=== PATIENT | male | born 1970 | race African-American/Black ===

== ENCOUNTER 2017-01-20 11:10 | Day surgery (SDC) | payer OTHER ==
[2017-01-18 18:24] LABS: HEMATOCRIT 38.9 % (40.0-51.0); HEMOGLOBIN 12.6 g/dL (13.6-17.8)
--- NOTE | ~2017-01-20 | OP ---
Record Of Operation [facility] [address] [place]. [address] NAME: MICHELE NOVA : 72 STATUS : [facility]#: [id number] AGE: 46 ADM/REG DATE : 01/20/17 MR#: [id number] REPORT SERV DATE: 01/20/17 DICTATED BY: NIKHIL MATTA DATE: 01/20/17 REPORT STATUS : Draft TRANSCRIBED BY: MODL DATE: 01/20/17 DATE OF PROCEDURE: 01/20/2017 PREOPERATIVE DIAGNOSIS: Elevated PSA. POSTOPERATIVE DIAGNOSIS: Elevated PSA. PROCEDURE PERFORMED: Transrectal ultrasound with prostate needle biopsy. SURGEON: Nikhil Matta M.D. ANESTHESIA: General. COMPLICATION: Bleeding from the biopsy sites requiring digital pressure and Gel-Foam plug. SPECIMEN: Sextant prostate needle biopsies. BLOOD LOSS: 100 mL. INDICATION: Mr. Nova is a 46-year-old who had first ever PSA, this was elevated. He was seen, and digital rectal exam in the office showed firm ridging of the right lateral prostate. He is unable to tolerate biopsy in the office. He presents for transrectal ultrasound with prostate needle biopsies under brief anesthetic. TECHNIQUE: Ancef and gentamicin were given preop. He was brought to the operating room. Monitored anesthesia care was administered with propofol. He was positioned in the left lateral decubitus position with the knees flexed. Digital exam showed a 20 g prostate with ridging along the right lobe. A 6 MHz endorectal ultrasound probe was introduced. Ultrasonographic images of the prostate were obtained. Prostate measured 4 cm x 4 cm x 2.6 cm for an estimated volume of 23 mL. The right and left seminal vesicles were dilated to 1.5 to 1.6 cm. There were calcifications at the transition zone particularly on the left. Ultrasonographic images of the prostate were safe. Sextant prostate needle biopsies were then obtained under ultrasound guidance. Biopsy was taken for the right base, right mid, right apex, left base, left mid, and left apex. There was bleeding from the biopsy sites. There was significant bleeding out from the first toe. One or two biopsies were obtained. First, the biopsies promptly held digital pressure against the prostate for approximately 10 minutes. This appeared to control the bleeding. A Gel-Foam packing was placed into the rectum. He was taken to the recovery room in satisfactory condition. He will be observed for one hour to confirm there was not ongoing bleeding. I will see him back in two weeks to review biopsy results. [facility]/[place] Nikhil Urbina Record Of Operation [address] [place]. [address] NAME: MICHELE NOVA : 72 STATUS : [facility] PAT#: [id number] AGE: 46 ADM/REG DATE : 01/20/17 MR#: [id number] REPORT SERV DATE: 01/20/17 DICTATED BY: NIKHIL MATTA DATE: 01/20/17 REPORT STATUS : Draft TRANSCRIBED BY: [place] DATE: 01/20/17 Mian Matta / [id number] CC: Mian Gauthier M.D.
[~2017-01-20 11:10] MED LIST: ALLEGRA180 PO; POTASSIUM OTC PO; VITAMINS PO
== END 2017-01-20 16:13 | disposition home or self-care (01) ==
LOC: SDC 11:10
PROVIDERS: Urology
PROC: 0VB07ZX Excision of Prostate, Via Natural or Artificial Opening, Diagnostic (ICD-10-PCS; principal; 2017-01-20 12:45)
DX: C61 Malignant neoplasm of prostate (principal); F17.210 Nicotine dependence, cigarettes, uncomplicated; Z79.899 Other long term (current) drug therapy
CPT/HCPCS: 76872; 76942; 85014; 85018; 88305; J0690; J1580; J2250; J2405

== ENCOUNTER 2017-02-25 05:50 | Inpatient (IN) | payer OTHER ==
[2017-02-18 17:24] LABS: BASOPHILS 0.1 %; BASOPHILS ABSOLUTE 0.01 10/3/uL (0.0-0.16); EOSINOPHILS ABSOLUTE 0.29 10/3/uL (0.0-0.53); HEMATOCRIT 38.6 % (40.0-51.0); HEMOGLOBIN 12.5 g/dL (13.6-17.8); IMMATURE GRANULOCYTES 0.2 %; IMMATURE GRANULOCYTES ABSOLUTE 0.02 10/3/uL (0.0-0.11); LYMPHOCYTES 37.4 %; MEAN CORPUS HGB CONC 32.4 g/dL (32.0-36.0); MEAN CORPUSCULAR HEMOGLOB 25.8 pg (26.0-34.0); MEAN CORPUSCULAR VOLUME 79.6 fL (80-100); MEAN PLATELET VOLUME 11.3 fL (9.2-13.0); MONOCYTES 6.3 %; MONOCYTES ABSOLUTE 0.61 10/3/uL (0.21-1.20); NEUTROPHILS ABSOLUTE 5.09 10/3/uL (2.02-8.40); PLATELET COUNT 183 10/3/uL (150-400); RBC DISTRIBUTION WIDTH 14.4 % (12.0-16.0); RED CELL COUNT 4.85 10/6/uL (4.7-6.1); WHITE BLOOD CELLS 9.6 10/3/uL (4.5-10.5)
[2017-02-18 17:27] LABS: MANUAL DIFF NO %
[2017-02-18 17:32] LABS: PARTIAL THROMBO TIME 29.2 SEC (22.5-37.2); PROTIME (NOT ORD) 13.3 SEC (12.0-14.5)
[2017-02-18 17:34] LABS: CALCIUM, SERUM 8.9 MG/DL (8.5-10.4); CHLORIDE, SERUM 110 MMOL/L (96-112); CO2 (CARBON DIOXIDE) 24 MMOL/L (24-34); CREATININE 1.48 MG/DL (0.70-1.30); GFR AFRICAN AMERICAN 65 ML/MIN (>=60); GFR NON AFRICAN AMERICAN 56 ML/MIN (>=60); GLUCOSE, SERUM 89 MG/DL (60-99); POTASSIUM, SERUM 3.8 MMOL/L (3.5-5.3); SODIUM, SERUM 141 MMOL/L (135-148)
[2017-02-18 17:37] LABS: BUN (BLOOD UREA NITROGEN) 29 MG/DL (6-23)
[2017-02-18 17:39] LABS: ASCORBIC ACID (UR NOT ORDER) NEG (NEG); BILIRUBIN, URINE NEGATIVE (NEG); KETONE, URINE NEGATIVE (NEG); LEUKOCYTE ESTERASE(NOT OR NEG (NEG); WBC (NOT ORDERED) (RFLEX) < 1 (0-5)
--- NOTE | ~2017-02-25 | HP ---
History And Physical [address] [address] NAME: MICHELE NOVA : 72 STATUS : REG [facility]#: [id number] AGE: 46 ADM/REG DATE : 02/25/17 MR#: [id number] REPORT SERV DATE: 02/25/17 DICTATED BY: JONATHAN PEREZ DATE: 02/24/17 REPORT STATUS : Draft TRANSCRIBED BY: MODL DATE: 02/24/17 DATE OF ADMISSION: 02/25/2017 CHIEF COMPLAINT: Adenocarcinoma of the prostate, clinical stage T2b, Erwin score 3+4=7, maximum PSA of 5.11. HISTORY OF PRESENT ILLNESS: Mr. Nova is a 46-year-old male, recently diagnosed with adenocarcinoma of the prostate. Elevated PSA of 5.11 led to the biopsy. Biopsy revealed Sedalia score 6 from five of six biopsies and Sedalia score 3+4=7 from one of six biopsies. All from the right side. Different treatment options regarding management of prostate cancer were proposed to the patient. He has decided to proceed with laparoscopic robot-assisted radical prostatectomy. He will be admitted after that procedure. The patient has 29 mL prostate. He denies any trouble with urination. He denies any erectile dysfunction. PAST MEDICAL HISTORY: None. PAST SURGICAL HISTORY: None. MEDICATIONS: None. ALLERGIES: NONE. SOCIAL HISTORY: Denies drug, alcohol, or tobacco use. 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 FAMILY HISTORY: Negative for prostate cancer. REVIEW OF SYSTEMS: Negative. PHYSICAL EXAMINATION: GENERAL: Well-developed, well-nourished male, in no acute distress. VITAL SIGNS: Stated weight is 220 pounds. He is afebrile. His vital signs are stable. He has good cognitive function. Sclerae anicteric. NECK: Supple. LUNGS: Clear. HEART: Regular rate and rhythm. ABDOMEN: Soft, nontender, no palpable abdominal masses. No umbilical hernia. : Penis normal. Testes descended, nontender. No inguinal hernia. Prostate is relatively small, nodule on the right, somewhat irregular thickening of the rectal mucosa. No deformities on the left. IMPRESSION: Adenocarcinoma of the prostate, clinical stage T2b, worst Erwin score 3+4=7, History And Physical [address] [place]. [address] NAME: MICHELE NOVA : 72 STATUS : REG [facility] PAT#: [id number] AGE: 46 ADM/REG DATE : 02/25/17 MR#: [id number] REPORT SERV DATE: 02/25/17 DICTATED BY: JONATHAN PEREZ DATE: 02/24/17 REPORT STATUS : Draft TRANSCRIBED BY: MODL DATE: 02/24/17 high volume disease with a maximum PSA of 5.11. PLAN: Laparoscopic robot-assisted radical prostatectomy, bilateral pelvic node sampling. Potential complications of bleeding, infection, urinary incontinence, bladder neck obstruction, loss of ejaculate, erectile dysfunction, and injury to adjacent structures such as bladder, ureters, rectum, colon, intestine, nerves, as well as bowel obstruction and complications have all been explained to the patient. He both manually and verbally consents to proceed. [facility]/[place] Jonathan Perez M.D. / [id number] CC: Mian Vance M.D.
--- NOTE | ~2017-02-25 | OP ---
Record Of Operation [facility] [address] [place]. [address] NAME: MICHELE NOVA : 72 STATUS : REG [facility] PAT#: [id number] AGE: 46 ADM/REG DATE : 02/25/17 MR#: [id number] REPORT SERV DATE: 02/25/17 DICTATED BY: JONATHAN PEREZ DATE: 02/25/17 REPORT STATUS : Draft TRANSCRIBED BY: MODL DATE: 02/25/17 DATE OF PROCEDURE: 02/25/2017 PREOPERATIVE DIAGNOSIS: Adenocarcinoma of the prostate, clinical stage T2b, Floyd score 3+4=7, maximum PSA of 5.11. POSTOPERATIVE DIAGNOSIS: Adenocarcinoma of the prostate, clinical stage T2b, Floyd score 3+4=7, maximum PSA of 5.11. PROCEDURES: 1. Laparoscopic robot-assisted radical prostatectomy. 2. Laparoscopic robot-assisted bilateral pelvic node sampling. LATHE SANDER: Olivier Hatch. ANESTHESIA: General and local. BLOOD LOSS: Estimated 125 mL. FLUID REPLACEMENT: 3 L of crystalloid. DRAINS: 15 mm Silviano drain in prevesical space and an 18-Kazakh Perez catheter per urethra. INDICATION: A 46-year-old male, recently diagnosed with adenocarcinoma of the prostate. TECHNIQUE: The patient was identified, brought to the operating room after general anesthetic agent by the Anesthesia Service, and intubated. He was positioned in dorsal lithotomy position. The entire abdomen previously has been clipped. The entire abdomen, penis, groin, scrotum, and perineum were prepped and draped in usual sterile fashion. A 16- Kazakh Perez catheter was passed in the bladder and left for drainage. All laparoscopic port sites were first infiltrated with 0.5% Marcaine plain. A Bryan technique was used to place a 12 mm balloon trocar above the umbilicus. A pneumoperitoneum was created and the patient was placed in steep Trendelenburg. Three robot arm ports and two medical receptionist medical assistant ports were placed under direct laparoscopic vision. Once ports were in position, da Tianna robot was brought to the table and mated to the ports. I took down some adhesions between sigmoid colon and left pelvic sidewall. I then opened the cul-de-sac and exposed the seminal structures. The left and right vasa deferentia were dissected out, clipped proximally, and transected distally. Left and right seminal vesicles were dissected out and clipped laterally. Denonvilliers fascia was opened sharply and the rectum swept off the undersurface of the prostate all the way out to the apex bilaterally. I opened the peritoneum just lateral to the median umbilical ligaments on each side. I swept the bladder off the anterior abdominal wall and symphysis pubis. The median umbilical ligaments and urachus were divided near the umbilicus. The fat overlying the prostate gland Record Of Operation [facility] [address] [facility] [place]. [address] NAME: MICHELE NOVA : 72 STATUS : REG [facility] PAT#: [id number] AGE: 46 ADM/REG DATE : 02/25/17 MR#: [id number] REPORT SERV DATE: 02/25/17 DICTATED BY: JONATHAN PEREZ DATE: 02/25/17 REPORT STATUS : Draft TRANSCRIBED BY: [place] DATE: 02/25/17 was taken off with sharp dissection. The endopelvic fascia was pierced sharply at the prostatovesical junction, carried distally out to the puboprostatic ligaments bilaterally. The dorsal venous complex was isolated. It was then secured with a laparoscopic MARINO stapling device. The neurovascular bundles were released at the apices and dissected off the prostate all the way back to the posterior pedicles bilaterally. I switched to 30-degree down lens and developed a plane between the bladder neck of the prostate. I opened the anterior bladder neck and elevated the Perez catheter and take the lateral attachments of the bladder off the prostate sharply. I come to the posterior bladder neck down and exposed previously dissected out seminal structures. The posterior pedicles are secured with locking clips and divided sharply. The prostate now mobile all the way out to the apex. The last attachments of the striated sphincter were taken off the apex of prostate. The urethra was divided sharply and the posterior striated sphincter was divided. Specimens inspected, appears intact, placed into a specimen retrieval bag, held for later retrieval. The abdominal pressure now lowered down to 7 mmHg and held there for the next 15 minutes. The pelvis was irrigated copiously. Fastidious hemostasis achieved. I had oversewn part of the distal left neurovascular bundle with 3-0 Monocryl. Once fastidious hemostasis was achieved, I performed posterior reconstruction in two layers with 3-0 V-Loc. I reconstructed the bladder neck using horizontal mattress sutures of 3-0 Monocryl at the left and right at the 3 o'clock and 9 o'clock position. I then did a modified van Velthoven vesicourethral anastomosis with 3-0 V-Loc. The anastomosis was completed. I inserted a new 18-Kazakh Perez catheter. The anastomosis tested by filling the bladder with 240 mL of saline. It was held without extravasation. The bladder was then drained and 12 mL of sterile water inflating the catheter balloon. I then sampled the external iliac obturator and internal iliac lymph nodes on the right side. On the left side, I took the external iliac and obturator lymph nodes. Locking clips and metallic clips were used for lymphostasis and hemostasis. These were placed in a specimen retrieval bag and held for later retrieval. The instrument was taken out of the robot arm port. A 15 mm Silviano drain was placed through that port and left in the prevesical space. The ports removed and drain sutured to skin with 2-0 Prolene. The da Tianna robot was undocked. I transferred the string of the specimen bag out through the umbilical port. The medical receptionist medical assistant 12 mm port was removed and the fascia there was closed with Vidal-Wing endoscopic closure system. The patient was taken out of Trendelenburg. No bleeding was noted. This was under low pressure. I then removed all of the ports. I delivered the specimens out through the umbilical wound. I closed the fascia with [id number] 0 Vicryl suture. The subcutaneous tissue of all ports irrigated copiously. The subcutaneous tissue of the larger ports closed with 3-0 Vicryl. The skin of all ports closed with 4-0 Monocryl. Dressings were applied. The catheter was secured. The patient was awakened and taken to the recovery unit in a stable and satisfactory condition. Record Of Operation [address] [place]. [address] NAME: MICHELE NOVA : 72 STATUS : REG [facility] PAT#: [id number] AGE: 46 ADM/REG DATE : 02/25/17 MR#: [id number] REPORT SERV DATE: 02/25/17 DICTATED BY: JONATHAN PEREZ DATE: 02/25/17 REPORT STATUS : Draft TRANSCRIBED BY: [place] DATE: 02/25/17 PF/[place] Jonathan Perez M.D. / [id number] CC: Mian Vance M.D.
[2017-02-26 07:06] LABS: HEMATOCRIT 38.6 % (40.0-51.0); HEMOGLOBIN 12.6 g/dL (13.6-17.8)
[2017-02-26 07:16] LABS: CALCIUM, SERUM 8.7 MG/DL (8.5-10.4); CHLORIDE, SERUM 109 MMOL/L (96-112); CO2 (CARBON DIOXIDE) 26 MMOL/L (24-34); CREATININE 1.24 MG/DL (0.70-1.30); GFR AFRICAN AMERICAN 81 ML/MIN (>=60); GFR NON AFRICAN AMERICAN 70 ML/MIN (>=60); POTASSIUM, SERUM 4.2 MMOL/L (3.5-5.3); SODIUM, SERUM 140 MMOL/L (135-148)
[2017-02-26 07:18] LABS: BUN (BLOOD UREA NITROGEN) 10 MG/DL (6-23); GLUCOSE, SERUM 128 MG/DL (60-99)
[2017-02-26] MEDS ORDERED: NORCO1 TA1 PO (11:11)
== END 2017-02-26 11:59 | disposition home or self-care (01) | DRG 708 ==
LOC: SDC 05:50 → 4SO 13:59
PROVIDERS: Urology
PROC: 07BC4ZX Excision of Pelvis Lymphatic, Percutaneous Endoscopic Approach, Diagnostic (ICD-10-PCS; 2017-02-25)
PROC: 8E0W4CZ Robotic Assisted Procedure of Trunk Region, Percutaneous Endoscopic Approach (ICD-10-PCS; 2017-02-25)
PROC: 0VT04ZZ Resection of Prostate, Percutaneous Endoscopic Approach (ICD-10-PCS; principal; 2017-02-25 06:30)
DX: C61 Malignant neoplasm of prostate (principal); E66.9 Obesity, unspecified; K21.9 Gastro-esophageal reflux disease without esophagitis; Z68.31 Body mass index [BMI] 31.0-31.9, adult
CPT/HCPCS: 80048; 81001; 83735; 85014; 85018; 85025; 85610; 85730; 88307; 88309; 93005; A9270-GY; J0360; J0690; J2250; J2405; J2550; J2710; J3010